=== PATIENT | male | born 1985 | race American Indian/Alaskan Native ===

== ENCOUNTER 2024-06-18 10:18 | Emergency (ER) | payer MEDICAID, OTHER ==
[~2024-06-18] VITALS: Ht 188 cm; Wt 159.0 kg
[2024-06-18 11:35] VITALS: BP 143/85; PULSE 91; RESP 22; TEMP 97.7; O2SAT 96
== END 2024-06-18 11:50 | disposition home or self-care (01) ==
LOC: ER 10:18
DX: S29.011A Strain of muscle and tendon of front wall of thorax, initial encounter (principal); W18.09XA Striking against other object with subsequent fall, initial encounter; Y93.89 Activity, other specified; Y92.89 Other specified places as the place of occurrence of the external cause; Y99.8 Other external cause status
CPT/HCPCS: 71101

== ENCOUNTER 2025-07-02 11:13 | Emergency (ER) | payer MEDICAID, OTHER ==
[~2025-07-02] VITALS: Ht 182.9 cm; Wt 152.8 kg
[2025-07-02 11:55] VITALS: BP 130/69; PULSE 100; RESP 18; TEMP 98.7; O2SAT 96
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
--- NOTE | 2025-07-02 13:22 | DVH ---
EXAM: CT CERVICAL WITHOUT CONTRAST INDICATION: [facility] EXAM DATE: 07/02/2025 12:03 PM COMPARISON: None TECHNIQUE: Multiple axial CT images of the cervical spine were obtained using bone algorithm. Axial a nd coronal reformatting was done. Bone and soft tissue windows were reviewed. Dose-length product is 756.78 mGy*cm FINDINGS: No acute compression deformity, fracture, or subluxation. No significant foraminal stenosis. No high-grade spinal canal stenosis. The prevertebral soft tissues are not thickened. Thyroid is unremarkable. Limited sections of the lung apices demonstrate no pneumothorax. IMPRESSION: 1. No acute cervical spine fracture or subluxation.
[2025-07-02] MEDS ORDERED: CYCL-839 PO (14:25)
[2025-07-02] MEDS ORDERED: DICL50TA2 PO (14:25)
== END 2025-07-02 14:29 | disposition home or self-care (01) ==
LOC: ER 11:13
DX: M62.838 Other muscle spasm (principal); Z79.899 Other long term (current) drug therapy; V23.49XA Other motorcycle driver injured in collision with car, pick-up truck or van in traffic accident, initial encounter; Y93.89 Activity, other specified; Y92.89 Other specified places as the place of occurrence of the external cause; Y99.8 Other external cause status
CPT/HCPCS: 72125